=== PATIENT | female | born 1950 | race Caucasian/White ===

== ENCOUNTER 2019-04-13 10:28 | Emergency (ER) | payer MEDICARE, OTHER ==
[2019-04-13 10:50] VITALS: BP 146/70
--- NOTE | 2019-04-13 11:02 | UC ---
Skin Complaint HPI - HPI Summary HPI Summary: 68 yo woman with a swollen left fingertip x 6 days with increasing pain. - History of Current Complaint Chief Complaint: UCUpperExtremity Time Seen by Provider: 04/13/19 10:52 Stated Complaint: RED SWOLLEN FINGER TIP Hx Obtained From: Patient Onset/Duration: Gradual Onset, Lasting Days - 6 Skin Exposure Onset/Duration: Days Ago Onset Severity: Mild Pain Intensity: 3 - Allergy/Home Medications Allergies/Adverse Reactions: Allergies Allergy/AdvReac Type Severity Reaction Status Date / Time No Known Allergies Allergy Unverified 04/13/19 10:50 PMH/Surg Hx/FS Hx/Imm Hx Previously Healthy: Yes - Surgical History Surgical History: Yes Surgery Procedure, Year, and Place: L plantar fasciitis. 2008 R rotator cuff repair - NO METAL PER PATIENT. 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 Lifted margin with 18 gauge needle for moderate amount of purulent material. Course/Dx - Course Course Of Treatment: drainage of paronychia without I+D antibiotic for treatment of associated cellulitis - Differential Diagnoses - Skin Complaint Differential Diagnoses: Cellulitis, Other - paronychia - Diagnoses Provider Diagnosis: Paronychia of left index finger Discharge ED - Sign-Out/Discharge Documenting (check all that apply): Patient Departure All imaging exams completed and their final reports reviewed: No Studies - Discharge Plan Condition: Stable Disposition: HOME Prescriptions: cephALEXin [Keflex] 500 mg PO TID #15 capsule Patient Education Materials: Paronychia (ED) Referrals: Carmen Perez DO [Primary Care Provider] - Additional Instructions: Soak your finger in warm water and salt for 15 minutes every feew hours today, gently expressing further discharge. Cephalexin has been prescribed to treat the soft tissue infection. Use ibuprofen as needed for control of pain. - Billing Disposition and Condition Condition: STABLE Disposition: Home
[2019-04-13] MEDS ORDERED: Ibuprofen TAB* 600 MG PO ONE (11:08)
== END 2019-04-13 11:24 | disposition home or self-care (01) ==
LOC: UCEAST 10:28
DX: L03.012 Cellulitis of left finger (principal)
CPT/HCPCS: 99212; A9270-GY; G0463